=== PATIENT | female | born 1985 | race Caucasian/White ===

== ENCOUNTER 2018-10-04 02:32 | Emergency (ER) | payer MEDICAID ==
[~2018-10-04] VITALS: Ht 170.2 cm; Wt 68.0 kg
[2018-10-04 02:56] VITALS: BP 118/81
== END 2018-10-04 02:57 | disposition home or self-care (01) ==
LOC: ER 02:34
DX: J02.9 Acute pharyngitis, unspecified (principal); F17.200 Nicotine dependence, unspecified, uncomplicated; Z88.1 Allergy status to other antibiotic agents
CPT/HCPCS: A4663

== ENCOUNTER 2021-10-08 02:55 | Emergency (ER) | payer MEDICAID ==
[~2021-10-08] VITALS: Ht 172.7 cm; Wt 68.0 kg
--- NOTE | 2021-10-08 04:30 | NUR ---
Dr. Trammell at bedside for MSE.
[2021-10-08] MEDS ORDERED: CEPH500C2 PO (04:51)
[2021-10-08 04:55] VITALS: BP 137/91
--- NOTE | 2021-10-08 04:55 | NUR ---
Patient discharged to home in stable condition. Written and verbal after care instructions given. Patient verbalizes understanding of instructions. Stressed follow up or return to ER for worsening s/s. Patient out of ER with steady gait, no acute signs of distress, VSS, all belongings taken.
== END 2021-10-08 04:56 | disposition home or self-care (01) ==
LOC: ER 02:59
DX: L03.211 Cellulitis of face (principal); S01.112A Laceration without foreign body of left eyelid and periocular area, initial encounter; Y09 Assault by unspecified means; Y92.89 Other specified places as the place of occurrence of the external cause; R03.0 Elevated blood-pressure reading, without diagnosis of hypertension; Z88.1 Allergy status to other antibiotic agents; F17.210 Nicotine dependence, cigarettes, uncomplicated
CPT/HCPCS: A4663